=== PATIENT | female | born 1950 | race Caucasian/White ===

== ENCOUNTER 2016-12-24 14:47 | Emergency (ER) | payer MEDICARE ==
[2016-12-24 15:22] VITALS: BP 116/56
--- NOTE | 2016-12-24 16:07 | UC ---
Complaint Female HPI - HPI Summary HPI Summary: Patient has had burning with urination for 2 days, was called a prescription for cipro but not getting any improvement. - History Of Current Complaint Chief Complaint: UCGU Stated Complaint: URINARY Time Seen by Provider: 12/24/16 16:02 Hx Obtained From: Patient ?: No Onset/Duration: Sudden Onset, Lasting Days Timing: Lasting Days Severity Initially: Moderate Severity Currently: Moderate Character: Burning Aggravating Factor(s): Urination Associated Signs And Symptoms: Positive: Back Pain - Allergies/Home Medications Allergies/Adverse Reactions: Allergies Allergy/AdvReac Type Severity Reaction Status Date / Time Sulfa Antibiotics Allergy Hives Verified 12/24/16 15:23 Home Medications: Home Medications Sertraline* [Zoloft*] 200 mg PO BEDTIME 12/24/16 [History Confirmed 12/24/16] PMH/Surg Hx/FS Hx/Imm Hx Previously Healthy: Yes - Surgical History Surgical History: None - Family History Known Family History: Positive: Hypertension - Social History Alcohol Use: Weekly Substance Use Type: None Smoking Status (MU): Never Smoked Tobacco Review of Systems Skin: Negative Eyes: Negative ENT: Negative Respiratory: Negative Cardiovascular: Negative Gastrointestinal: Abdominal Pain Genitourinary: Dysuria, Hematuria, Frequency, Urgency Motor: Negative Neurovascular: Negative Musculoskeletal: Negative Neurological: Negative Psychological: Negative All Other Systems Reviewed And Are Negative: Yes Physical Exam Triage Information Reviewed: Yes Appearance: Well-Appearing, Well-Nourished, Pain Distress Vital Signs: Initial Vital Signs Temp 98.5 F 12/24/16 15:13 Pulse 68 12/24/16 15:13 Resp 14 12/24/16 15:13 BP 116/56 12/24/16 15:13 Pulse Ox 98 12/24/16 15:13 Vital Signs Reviewed: Yes Eye Exam: Normal Eyes: Positive: Conjunctiva Clear ENT: Positive: Normal ENT inspection, Hearing grossly normal, Pharynx normal, TMs normal Dental Exam: Normal Neck exam: Normal Neck: Positive: Supple, Nontender, No Lymphadenopathy Respiratory Exam: Normal Respiratory: Positive: Chest non-tender, Lungs clear, Normal breath sounds Cardiovascular Exam: Normal Cardiovascular: Positive: RRR, No Murmur, Pulses Normal Abdomen Description: Positive: Nontender, No Organomegaly, Soft, CVA Tenderness (L) - pos Bowel Sounds: Positive: Present Musculoskeletal Exam: Normal Musculoskeletal: Positive: Strength Intact, ROM Intact, No Edema Neurological Exam: Normal Neurological: Positive: Alert, Muscle Tone Normal Psychological Exam: Normal Skin Exam: Normal Complaint Female Dx - Course Course Of Treatment: hx obtained, exam performed, meds reviewed, Urined culture sent and she was treated with Keflex - Differential Dx/Diagnosis Differential Diagnosis/HQI/PQRI: Sexually Transmitted Disease, Ureteral Stone, Urinary Tract Infection, Other - pylonephritis Provider Diagnoses: UTI. Hematuria Discharge - Discharge Plan Condition: Stable Disposition: HOME Patient Education Materials: Urinary Tract Infection in Women (ED) Additional Instructions: 1. stop the Cipro and start the keflex. 2. Your urine was sent for culture if there needs to be a change in medication we will call you to change it. 3. Follow up with any increase in back pain, you develop a fever or the symptoms do not go away with treatment.
== END 2016-12-24 16:25 | disposition home or self-care (01) ==
LOC: UCCORT 14:47
DX: N39.0 Urinary tract infection, site not specified (principal); R31.9 Hematuria, unspecified; Z88.1 Allergy status to other antibiotic agents
CPT/HCPCS: 81003; 87077; 87086; 87186; 99202; G0463

== ENCOUNTER 2017-03-01 12:32 | Emergency (ER) | payer MEDICARE ==
--- NOTE | 2017-03-01 12:40 | UC ---
Abdominal Pain Female HPI - HPI Summary HPI Summary: 66 YEAR OLD FEMALE PRESENTS WITH COMPLAINS OF RLQ PAIN. I WILL SEND HER TO THE ER TO RULE OUT APPENDICITIS. - History of Current Complaint Stated Complaint: STOMACH PAINS Time Seen by Provider: 03/01/17 12:39 Allergies/Adverse Reactions: Allergies Allergy/AdvReac Type Severity Reaction Status Date / Time Sulfa Antibiotics Allergy Hives Verified 03/01/17 12:42 Home Medications: Home Medications NK [No Home Medications Reported] 03/01/17 [History Confirmed 03/01/17] PMH/Surg Hx/FS Hx/Imm Hx Previously Healthy: Yes - Surgical History Surgical History: None - Family History Known Family History: Positive: Hypertension - Social History Alcohol Use: Weekly Substance Use Type: None Smoking Status (MU): Never Smoked Tobacco Review of Systems Constitutional: Negative Skin: Negative Eyes: Negative ENT: Negative Respiratory: Negative Cardiovascular: Negative Gastrointestinal: Abdominal Pain - RLQ PAIN, Vomiting, Nausea Genitourinary: Negative Motor: Negative Neurovascular: Negative Musculoskeletal: Negative Neurological: Negative Psychological: Negative All Other Systems Reviewed And Are Negative: Yes Physical Exam Triage Information Reviewed: Yes Eye Exam: Normal ENT Exam: Normal Dental Exam: Normal Neck exam: Normal Neck: Positive: 1 Respiratory Exam: Normal Cardiovascular Exam: Normal Abdomen Description: Positive: Guarding, Other: - RLQ PAIN Musculoskeletal Exam: Normal Neurological Exam: Normal Psychological Exam: Normal Skin Exam: Normal Abd Pain Female Course/Dx - Differential Dx/Diagnosis Provider Diagnoses: ABDOMINAL PAIN. RLQ PAIN Discharge - Discharge Plan Condition: Stable Disposition: HOME Patient Education Materials: Acute Abdominal Pain (ED) Referrals: Non Staff,Doctor [Primary Care Provider] - Additional Instructions: PLEASE GO TO ER TO RULE OUT APPENDICITIS.
[2017-03-01 12:42] VITALS: BP 104/71
== END 2017-03-01 13:00 | disposition home or self-care (01) ==
LOC: UCCORT 12:32
DX: R10.31 Right lower quadrant pain (principal); R11.2 Nausea with vomiting, unspecified; Z88.2 Allergy status to sulfonamides
CPT/HCPCS: 99211; G0463

== ENCOUNTER 2019-03-16 09:01 | Emergency (ER) | payer MEDICARE ==
[2019-03-16 10:27] VITALS: BP 109/70
--- NOTE | 2019-03-16 10:42 | UC ---
Throat Pain/Nasal Lauri HPI - HPI Summary HPI Summary: 68-year-old woman comes in with chief complaint of sore throat. Been going on for one week. The pain is more mid neck rather than posterior pharynx. She does have some sinus congestion and postnasal drip. Pain is worse with taking a deep breath. She has been able eat and drink without any pain. No shortness of breath no chest pain. - History of Current Complaint Chief Complaint: UCGeneralIllness Stated Complaint: THROAT COMPLAINT Time Seen by Provider: 03/16/19 10:30 Pain Intensity: 5 - Allergies/Home Medications Allergies/Adverse Reactions: Allergies Allergy/AdvReac Type Severity Reaction Status Date / Time Sulfa (Sulfonamide Allergy Hives Verified 03/16/19 10:21 Antibiotics) Home Medications: Home Medications Ascorbic Acid TAB* [Vitamin C TAB*] 500 mg PO DAILY 03/16/19 [History Confirmed 03/16/19] Calcium Carbonate [Calcium] 500 mg PO DAILY 03/16/19 [History Confirmed 03/16/19 ] Cranberry Fruit Extract [oneforty Cranberry Ultra Streng] 1,000 mg PO DAILY 03/16/19 [ History Confirmed 03/16/19] Dmanose 1 tab PO DAILY 03/16/19 [History Confirmed 03/16/19] Lactobacillus Acidophilus [Probiotic Acidophilus Sup] 1 tab PO DAILY 03/16/19 [ History Confirmed 03/16/19] Lutein [Natural Lutein] 20 mg PO DAILY 03/16/19 [History Confirmed 03/16/19] Magnesium Oxide TAB* [MagOx 400 TAB*] 400 mg PO DAILY 03/16/19 [History Confirmed 03/16/19] Nitrofurantoin Macrocrystal [Nitrofurantoin] 100 mg PO TUTHSA 03/16/19 [History Confirmed 03/16/19] Turmeric 400 mg PO DAILY 03/16/19 [History Confirmed 03/16/19] Vitamin THERAPEUTIC TAB* [Theragran TAB*] 1 tab PO DAILY 03/16/19 [History Confirmed 03/16/19] PMH/Surg Hx/FS Hx/Imm Hx Previously Healthy: Yes - Surgical History Surgical History: None - Family History Known Family History: Positive: Hypertension - Social History Alcohol Use: Weekly Substance Use Type: None Smoking Status (MU): Never Smoked Tobacco Review of Systems All Other Systems Reviewed And Are Negative: Yes Constitutional: Positive: Negative Skin: Positive: Negative Eyes: Positive: Negative ENT: Positive: Sore Throat, Nasal Discharge, Sinus Congestion Respiratory: Positive: Negative Cardiovascular: Positive: Negative Gastrointestinal: Positive: Negative Motor: Positive: Negative Neurovascular: Positive: Negative Musculoskeletal: Positive: Negative Neurological: Positive: Negative Psychological: Positive: Negative Is Patient Immunocompromised?: No Physical Exam Appearance: Well-Appearing, No Pain Distress, Well-Nourished Vital Signs: Initial Vital Signs Temp 98.4 F 03/16/19 10:19 Pulse 72 03/16/19 10:19 Resp 16 03/16/19 10:19 BP 109/70 03/16/19 10:19 Pulse Ox 99 03/16/19 10:19 Vital Signs Reviewed: Yes Eye Exam: Normal Eyes: Positive: Conjunctiva Clear ENT: Positive: Pharynx normal, TMs normal Neck: Positive: Supple, Nontender, No Lymphadenopathy. Negative: Tenderness @, Enlarged Nodes @ Respiratory: Positive: Lungs clear, Normal breath sounds, No respiratory distress Cardiovascular: Positive: RRR Musculoskeletal: Positive: Strength Intact, ROM Intact Neurological: Positive: Alert, Muscle Tone Normal Psychological: Positive: Normal Response To Family, Age Appropriate Behavior Skin Exam: Normal Throat Pain/Nasal Course/Dx - Course Course Of Treatment: DISCUSSED VIRAL VERSES BACTERIAL INFECTION AND THE ROLE OF ANTIBIOTICS. THE PATIENT PREFERS TO BE ON ANTIBIOTICS AT THIS TIME. Strep was negative. At this time the patient prefers to be on antibiotics to see if this clears. If it does not clear she can follow-up with ENT for further evaluation. - Differential Dx/Diagnosis Provider Diagnosis: Sore throat Discharge - Sign-Out/Discharge Documenting (check all that apply): Patient Departure All imaging exams completed and their final reports reviewed: No Studies - Discharge Plan Condition: Stable Disposition: HOME Prescriptions: Amoxicillin PO (*) [Amoxicillin 875 MG (*)] 875 mg PO BID #20 tab Patient Education Materials: Pharyngitis (ED) Referrals: [facility] [Outside] Quinten Garcia MD [Medical Doctor] - Additional Instructions: FOLLOW UP WITH ENT, DR GARCIA, IF NOT COMPLETELY IMPROVED. GET REEVALUATED SOONER IF WORSE OR ANY QUESTIONS OR CONCERNS. - Billing Disposition and Condition Condition: STABLE Disposition: Home
== END 2019-03-16 11:38 | disposition home or self-care (01) ==
LOC: UCCORT 09:01
DX: J02.9 Acute pharyngitis, unspecified (principal); Z88.2 Allergy status to sulfonamides
CPT/HCPCS: 87651; 99212; G0463

== ENCOUNTER 2019-03-29 13:06 | Emergency (ER) | payer MEDICARE ==
[2019-03-29 13:46] VITALS: BP 104/65
--- NOTE | 2019-03-29 13:55 | UC ---
UC General HPI - HPI Summary HPI Summary: PT IS C/O A 4-5 DAY HX COUGH WITH CONGESTION, THICK MUCOUS AND HER LUNGS FEELING TIGHT. SHE DENIES CP. SHE HAS NO HX OF ASTHMA OR COPD. SHE DENIES HX HEART DISEASE. + HX SAME AND DX WITH BRONCHITIS. PT STATES "THEY USUALLY JUST GIVE ME A ZPAK". I QUESTIONED PT ABOUT HER HEART RACING AND SHE STATES IT IS NOT REALLY RACING. IT IS MORE OF A SHE CAN HEAR HER HEART POUNDING. PT RECENTLY FINISHED A 10 DAY COURSE OF AMOXICILLIN AND IS NOW ON MACROBID FOR A UTI. - History of Current Complaint Chief Complaint: UCGeneralIllness Stated Complaint: CHEST CONGESTION Time Seen by Provider: 03/29/19 13:44 Hx Obtained From: Patient Onset/Duration: Gradual Onset Timing: Constant Pain Intensity: 4 Associated Signs & Symptoms: Negative: Abdominal Pain, Chest Pain, Diarrhea, Nausea, Vomiting - Allergy/Home Medications Allergies/Adverse Reactions: Allergies Allergy/AdvReac Type Severity Reaction Status Date / Time Sulfa (Sulfonamide Allergy Hives Verified 03/29/19 13:47 Antibiotics) PMH/Surg Hx/FS Hx/Imm Hx - Additional Past Medical History Additional PMH: UTI Respiratory History: Bronchitis - Surgical History Surgical History: None - Family History Known Family History: Positive: Hypertension - Social History Alcohol Use: Daily Substance Use Type: None Smoking Status (MU): Never Smoked Tobacco Review of Systems All Other Systems Reviewed And Are Negative: Yes Constitutional: Negative: Fever, Chills ENT: Positive: Sore Throat. Negative: Ear Ache, Sinus Congestion Respiratory: Positive: Cough. Negative: Shortness Of Breath Cardiovascular: Negative: Palpitations, Chest Pain Musculoskeletal: Positive: Myalgia. Negative: Edema Neurological: Positive: Headache Physical Exam Triage Information Reviewed: Yes Appearance: Well-Appearing Vital Signs: Initial Vital Signs Temp 97.6 F 03/29/19 13:40 Pulse 78 03/29/19 13:40 Resp 18 03/29/19 13:40 BP 104/65 03/29/19 13:40 Pulse Ox 99 03/29/19 13:40 Vital Signs Reviewed: Yes Eyes: Positive: Conjunctiva Clear ENT: Positive: Normal ENT inspection Neck: Positive: Supple, Nontender, No Lymphadenopathy, Other: - NO JVD. Negative: Nuchal Rigidity Respiratory: Positive: Lungs clear, No respiratory distress, Decreased breath sounds - SLIGHT. Negative: Crackles, Rhonchi, Wheezing Cardiovascular: Positive: RRR, No Murmur, Other: - No murmur. Negative: Tachycardia Musculoskeletal: Positive: ROM Intact Neurological: Positive: Alert Psychological: Positive: Age Appropriate Behavior Skin Exam: Normal Diagnostics - Radiology No standard instances Radiology Interpretation Completed By: Radiologist - IMPRESSION: Lung velasquez appear hyperinflated. No definite pneumonia is identified. Chronic interstitial disease is noted. Re-Evaluation - Re-Evaluation First Eval Re-Evaluation Time: 14:36 Change: Improved - much better aeration without crackles or wheezing. pt notes improved. Course/Dx - Course Course Of Treatment: [place] thus will return if not improving or if worse. - Differential Dx - Multi-Symptom Differential Diagnoses: Other - non toxic. no hypoxic. no concern for cardiac pathology. cxr=IMPRESSION: Lung velasquez appear hyperinflated. No definite pneumonia is identified. Chronic interstitial disease is noted. antibiotic not indicated. - Diagnoses Provider Diagnosis: Bronchitis Discharge ED - Sign-Out/Discharge Documenting (check all that apply): Patient Departure All imaging exams completed and their final reports reviewed: Yes - Discharge Plan Condition: Stable Disposition: HOME Prescriptions: Albuterol HFA INHALER* [Ventolin HFA Inhaler*] 2 puff INH Q6H #1 mdi Patient Education Materials: Acute Bronchitis (ED) Referrals: No Primary Care Phys,NOPCP [Primary Care Provider] - Additional Instructions: RETURN IF NOT BETTER IN 5-7 DAYS OR SOONER IF WORSE. - Billing Disposition and Condition Condition: STABLE Disposition: Home
[2019-03-29] MEDS ORDERED: Albuterol 2.5 MG/3 ML NEB.SOL* (0.083%) INH ONE (13:57)
== END 2019-03-29 15:07 | disposition home or self-care (01) ==
LOC: UCCORT 13:06
DX: J40 Bronchitis, not specified as acute or chronic (principal); Z88.2 Allergy status to sulfonamides
CPT/HCPCS: 71046; 99212; G0463